=== PATIENT | female | born 1955 | race Caucasian/White ===

== ENCOUNTER 2016-08-17 21:45 | Emergency (ER) | payer BC ==
[~2016-08-17] VITALS: Ht 160 cm; Wt 59.0 kg
[2016-08-17 22:03] VITALS: BP 175/87
--- NOTE | 2016-08-17 22:12 | ED.ADGEN ---
Adult General Chief Complaint Chief Complaint: DIZZY/LIGHT HEADED HPI HPI Patient is a 61 year old woman, who takes a daily baby aspirin prophylactically , with no significant past history, who presents to the emergency department with a complaint of right-sided head and ear pain and a feeling of unsteadiness and lightheadedness after being struck with a foul ball approximately an hour prior to arrival in the emergency department. Patient was walking up the stairs of the stating with her grandchildren when a foul ball at a [employer] game struck her on the side of the head. states that she then fell forward, she experienced immediate pain and dizziness, but denies any loss of consciousness. She denies any focal weakness, numbness or tingling, states she is feeling weak all over, pain in her right ear and a ringing sensation, but no hearing loss, no vision changes. Patient denies pain in his location, she did fall to her knees, but denies any pain, any other injuries or complaints. No chest pain or shortness breath, no nausea or vomiting, patient did arrive in the emergency department via private vehicle with her family. Review of Systems Review of Systems Constitutional: Denies fever or chills. [] Eyes: Denies change in visual acuity. [] HENT: Denies nasal congestion or sore throat. [] Respiratory: Denies cough or shortness of breath. [] Cardiovascular: Denies chest pain or edema. [] GI: Denies abdominal pain, nausea, vomiting, bloody stools or diarrhea. [] : Denies dysuria. [] Musculoskeletal: Denies back pain or joint pain. [] Integument: Denies rash. [] Neurologic: Denies focal weakness or sensory changes. Headache and ringing in the right ear. Endocrine: Denies polyuria or polydipsia. [] Lymphatic: Denies swollen glands. [] Psychiatric: Denies depression or anxiety. [] Physical Exam Physical Exam Constitutional: Well developed, well nourished, no acute distress, non-toxic appearance. [] HENT: Normocephalic, atraumatic, bilateral external ears normal, oropharynx moist, no oral exudates, nose normal. Patient noted to have capillary hemorrhage on the 10 o'clock position of the right tympanic membrane, there is no perforation, no fluid layering or hemotympanum, no septal hematoma, no rankin sign, no mandibular or maxillary tenderness. Eyes: PERRLA, EOMI, conjunctiva normal, no discharge. [] Neck: Normal range of motion, no midline or paraspinal tenderness, supple, no stridor. C-collar in place. Cardiovascular:Heart rate regular rhythm, no murmur, S1, S2, rubs or gallops. [] Lungs & Thorax: Bilateral breath sounds clear to auscultation, no wheezing, rhonchi, rales. No chest wall tenderness or crepitus. [] Abdomen: Bowel sounds normal, soft, no tenderness, no rebound, rigidity, no guarding, no masses, no pulsatile masses. [] Skin: Warm, dry, no erythema, no rash. [] Back: No no midline tenderness, no step-offs or deformities, no CVA tenderness. [] Extremities: No tenderness, no cyanosis, no clubbing, ROM intact, no edema. Full range of motion without pain, pelvis stable to rock. [] Neurologic: Alert and oriented X 3, normal motor function, normal sensory function, no focal deficits noted. [] Psychologic: Affect normal, judgement normal, mood normal. [] Current Patient Data Vital Signs Vital Signs Date Time Temp Pulse Resp B/P (MAP) Pulse Ox O2 Delivery O2 Flow Rate FiO2 08/17/16 23:31 66 97 Room Air 08/17/16 22:03 98.6 18 175/87 (116) 98.6 EKG EKG Not indicated. Radiology/Procedures Radiology/Procedures [][facility] [address] [place] [address] IMAGING REPORT Signed PATIENT: ANSHUL PITT ACCOUNT: [id number] : 1955 LOCATION: ER AGE: 61 SEX: F EXAM STATUS: REG ER ORD. PHYSICIAN: MO DE LA TORRE DO REASON: Struck on R side of head by baseball/ No loc/ c/o dizziness, [facility] PROCEDURE: CT HEAD AND CERVICAL SPINE WO PROCEDURE CT brain without, CT cervical spine without contrast HISTORY right sikh pain and dizziness after getting hit in head at baseball game with a ball TECHNIQUE Axial CT images were obtained of the brain. Axial CT images were obtained through the cervical spine sagittal and coronal reconstructed images were reviewed. One or more of the following individualized dose reduction techniques were utilized for this examination: 1. Automated exposure control; 2. Adjustment of the mA and/or kV according to patient size; 3. Use of iterative reconstruction technique. COMPARISON None FINDINGS CT brain There is no intracranial hemorrhage or subdural hematoma. Ventricles are normal in size. There is no mass or shift of the midline. An acute CVA is not identified. A skull fracture is not identified. CT cervical spine Axial CT images were obtained through the cervical spine. A C-spine fracture is not identified. There is mild degenerative disc disease at C5-6 and C6-7. There is uncovertebral spurring and foraminal narrowing. There is no acute fracture. IMPRESSION degenerative change in this cervical spine. No C-spine fracture noted No intracranial hemorrhage or mass or acute finding noted intracranially. Electronically signed by: Julio Cesar Vasquez MD (August 17, 2016 22:48:06) DICTATED and SIGNED BY: JULIO CESAR VASQUEZ MD DATE: 08/17/16 2248 CC: MO DE LA TORRE DO; NON,STAFF ~ Course & Med Decision Making Course & Med Decision Making Pertinent Labs and Imaging studies reviewed. (See chart for details) Patient agreeable to receiving imaging of the head and the neck, based on location of injury, age and symptoms. C-collar placed without issue in the ED. Patient received imaging of the head and neck, which revealed no evidence of acute injury, mild degenerative changes of the cervical spine. On reevaluation patient states her pain is now a 2 out of 10, she is experiencing no nausea or vomiting, or other concerning symptoms, and states that she is feeling much better. Patient ambulated in the emergency department without issue. I did discuss concerning symptoms that would prompt return to the emergency department for additional evaluation with patient and family at bedside, patient voiced understanding and agreement with these instructions and precautions. She states that she will take some at home for her pain, any deeper medication instructions and this as well, and return to the ED if any concerning symptoms develop. Patient discharged home in stable condition with her family with plan as above. Dragon Disclaimer Dragon Disclaimer This electronic medical record was generated, in whole or in part, using a voice recognition dictation system. Departure Impression: Primary Impression: Closed head injury Disposition: 01 HOME, SELF-CARE Condition: IMPROVED MO DE LA TORRE DO August 17, 2016 22:12
--- NOTE | 2016-08-17 22:49 | RAD ---
PROCEDURE CT brain without, CT cervical spine without contrast HISTORY right judaism pain and dizziness after getting hit in head at baseball game with a ball TECHNIQUE Axial CT images were obtained of the brain. Axial CT images were obtained through the cervical spine sagittal and coronal reconstructed images were reviewed. One or more of the following individualized dose reduction techniques were utilized for this examination: 1. Automated exposure control; 2. Adjustment of the mA and/or kV according to patient size; 3. Use of iterative reconstruction technique. COMPARISON None FINDINGS CT brain There is no intracranial hemorrhage or subdural hematoma. Ventricles are normal in size. There is no mass or shift of the midline. An acute CVA is not identified. A skull fracture is not identified. CT cervical spine Axial CT images were obtained through the cervical spine. A C-spine fracture is not identified. There is mild degenerative disc disease at C5-6 and C6-7. There is uncovertebral spurring and foraminal narrowing. There is no acute fracture. IMPRESSION degenerative change in this cervical spine. No C-spine fracture noted No intracranial hemorrhage or mass or acute finding noted intracranially. Electronically signed by: Julio Cesar Vasquez MD (August 17, 2016 22:48:06)
== END 2016-08-17 23:31 | disposition home or self-care (01) ==
LOC: ER 21:45
DX: S09.90XA Unspecified injury of head, initial encounter (principal); R42 Dizziness and giddiness; W21.09XA Struck by other hit or thrown ball, initial encounter; Y93.89 Activity, other specified; Y99.8 Other external cause status; Y92.89 Other specified places as the place of occurrence of the external cause
CPT/HCPCS: 70450; 72125; 99284-25